=== PATIENT | male | born 1945 | race Caucasian/White ===

== ENCOUNTER 2019-04-21 19:08 | Emergency (ER) | payer MEDICARE, OTHER, SELFPAY ==
[2019-04-21] VITALS (8 sets, daily range): BP systolic 137–154; BP diastolic 67–136; PULSE 82–89; RESP 16–19; TEMP 36.4–36.7; O2SAT 93–98; BMI 33.3
--- NOTE | 2019-04-21 19:11 | CT_ITS ---
We are attempting to reach an attending provider to discuss findings. An addendum with communication details will be sent when the communication is complete. STUDY: CTA HEAD AND NECK WITH CONTRAST REASON FOR EXAM: Male, 73 years old. RADIATION DOSAGE (If Supplied By Facility): CTDIvol = ( 30.30 ) mGy, DLP = ( 1599.81 ) mGycm TECHNIQUE: CT angiography was performed with a multi-detector CT scanner. Data acquisition was obtained from the skull base through the vertex following intravenous administration of 100 IV Isovue 370. MIP images were reconstructed from the axial data set. Post-processing of the angiographic images was performed, with multiplanar reformation and 3D reconstruction. Individualized dose optimization techniques were used for this CT. COMPARISON: No relevant priors. FINDINGS: Intracranial ICA calcifications. Otherwise: Normal bilateral petrous carotid arteries. Normal right cavernous carotid artery with a normal supraclinoid bifurcation. Normal left cavernous carotid artery with a normal supraclinoid bifurcation. Normal right A1 segments of the anterior cerebral artery. Normal left A1 segments of the anterior cerebral artery. Normal intact anterior communicating artery (ACOM). Normal bilateral A2 segments of the anterior cerebral arteries. There is occlusion of the M1 segment of the right MCA. There is some reconstitution of flow of the more distal right MCA segments, although this is globally diminished compared to the left side. The left M1 and M2 segments of the middle cerebral arteries, with a normal M1 bifurcation. Normal right posterior communicating artery (PCOM). Normal left posterior communicating artery (PCOM). Normal bilateral vertebral arteries. Normal basilar artery with a normal basilar bifurcation. The visualized bilateral superior cerebellar (SCA) arteries are normal. Normal bilateral P1, P2 and visualized P3 segments of the posterior cerebral arteries. There is no demonstrated aneurysm of the [place]. There is no demonstrated abnormality of the visualized brain. AORTIC ARCH: Normal visualized aortic arch. Normal origins of the brachiocephalic, left common carotid, and left subclavian arteries. RIGHT CAROTID ARTERIES: Normal right common carotid artery (CCA). Mild eccentric calcified bulb plaque without underlying flow-limiting stenosis. Normal origin of the right internal carotid (ICA) artery without a hemodynamically significant stenosis. Normal visualized cervical portion of the right internal carotid artery. Normal origin of the right external carotid artery (ECA). LEFT CAROTID ARTERIES: Normal left common carotid artery (CCA). Mild eccentric calcified bulb plaque without underlying flow-limiting stenosis. Normal origin of the left internal carotid (ICA) artery without a hemodynamically significant stenosis. Normal visualized cervical portion of the left internal carotid artery. Normal origin of the left external carotid artery (ECA). VERTEBRAL ARTERIES: Normal bilateral vertebral arteries. CT/CTA Head W/WO Contrast IMPRESSION: There is occlusion of the M1 segment of the right MCA. There is some reconstitution of flow of the more distal right MCA segments, although this is globally diminished compared to the left side. Electronically Signed: De Mg MD at 19:39 EDT Tel , Service support ,
--- NOTE | 2019-04-21 19:11 | EKG12_ITS ---
Test Reason : Blood Pressure : / mmHG Vent. Rate : 087 BPM Atrial Rate : 087 BPM P-R Int : 248 ms QRS Dur : 136 ms QT Int : 560 ms P-R-T Axes : 072 114 -12 degrees QTc Int : 673 ms Sinus rhythm with 1st degree A-V block Non-specific intra-ventricular conduction block T wave abnormality, consider inferior ischemia Abnormal ECG Confirmed by FLORINDA ALMAZAN, PAIGE ([id number]), content editor TIARA ODOM ([id number]) on 04/25/2019 1:15:00 PM Referred By: ZAK Confirmed By:PAIGE NEELY MD
--- NOTE | 2019-04-21 19:11 | CT_ITS ---
STUDY: CTA HEAD AND NECK WITH CONTRAST REASON FOR EXAM: Male, 73 years old. RADIATION DOSAGE (If Supplied By Facility): CTDIvol = ( 30.30 ) mGy, DLP = ( 1599.81 ) mGycm TECHNIQUE: CT angiography was performed with a multi-detector CT scanner. Data acquisition was obtained from the skull base through the vertex following intravenous administration of 100 IV Isovue 370. MIP images were reconstructed from the axial data set. Post-processing of the angiographic images was performed, with multiplanar reformation and 3D reconstruction. Individualized dose optimization techniques were used for this CT. COMPARISON: No relevant priors. FINDINGS: Intracranial ICA calcifications. Otherwise: Normal bilateral petrous carotid arteries. Normal right cavernous carotid artery with a normal supraclinoid bifurcation. Normal left cavernous carotid artery with a normal supraclinoid bifurcation. Normal right A1 segments of the anterior cerebral artery. Normal left A1 segments of the anterior cerebral artery. Normal intact anterior communicating artery (ACOM). Normal bilateral A2 segments of the anterior cerebral arteries. There is occlusion of the M1 segment of the right MCA. There is some reconstitution of flow of the more distal right MCA segments, although this is globally diminished compared to the left side. The left M1 and M2 segments of the middle cerebral arteries, with a normal M1 bifurcation. Normal right posterior communicating artery (PCOM). Normal left posterior communicating artery (PCOM). Normal bilateral vertebral arteries. Normal basilar artery with a normal basilar bifurcation. The visualized bilateral superior cerebellar (SCA) arteries are normal. Normal bilateral P1, P2 and visualized P3 segments of the posterior cerebral arteries. There is no demonstrated aneurysm of the [place]. There is no demonstrated abnormality of the visualized brain. AORTIC ARCH: Normal visualized aortic arch. Normal origins of the brachiocephalic, left common carotid, and left subclavian arteries. RIGHT CAROTID ARTERIES: Normal right common carotid artery (CCA). Mild eccentric calcified bulb plaque without underlying flow-limiting stenosis. Normal origin of the right internal carotid (ICA) artery without a hemodynamically significant stenosis. Normal visualized cervical portion of the right internal carotid artery. Normal origin of the right external carotid artery (ECA). LEFT CAROTID ARTERIES: Normal left common carotid artery (CCA). Mild eccentric calcified bulb plaque without underlying flow-limiting stenosis. Normal origin of the left internal carotid (ICA) artery without a hemodynamically significant stenosis. Normal visualized cervical portion of the left internal carotid artery. Normal origin of the left external carotid artery (ECA). VERTEBRAL ARTERIES: Normal bilateral vertebral arteries. CT/CTA Neck W/WO Contrast IMPRESSION: There is occlusion of the M1 segment of the right MCA. There is some reconstitution of flow of the more distal right MCA segments, although this is globally diminished compared to the left side. N.B. : The above information has been verbally conveyed by De Mg MD to Constantine Maria MD, on 04/21/2019 19:40:50 (ET). Electronically Signed: De Mg MD at 19:39 EDT Tel , Service support ,
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
--- NOTE | 2019-04-21 19:11 | RAD_ITS ---
STUDY: X-RAY CHEST REASON FOR EXAM: Male, 73 years old. Stroke TECHNIQUE: Single frontal view of the chest. COMPARISON: None. FINDINGS: The lungs are clear and expanded. There is no demonstrated pleural abnormality. Prominent cardiac silhouette. Normal mediastinum and matt. Normal visualized pulmonary arteries. Normal visualized aortic arch and descending thoracic aorta. Normal visualized thoracic spine. Normal visualized ribs, clavicles, and shoulders. There is no demonstrated abnormality of the visualized soft tissue structures of the upper abdomen. RAD/Chest 1 View IMPRESSION: No acute pulmonary findings. Electronically Signed: De Mg MD at 20:13 EDT Tel , Service support ,
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
[2019-04-21 19:28] LABS: Absolute Lymphocyte Count 1.61 X10^3/ul (0.83-4.51); Absolute Neutrophil Count 7.9 X10^3/uL (2.0-7.7); Basophil# 0.06 X10^3/uL; Basophil% 0.6 % (0-1); Eosinophil# 0.11 X10^3/uL; Hematocrit 49.2 % (40-54); Hemoglobin 16.9 g/dl (13.0-16.5); Lymphocyte # 1.61 X10^3/ul (4.0); Mean Corp Hgb Conc 34.3 g/gl (32-36); Mean Corpuscular Volume 84.4 fL (80-94); Mean Platelet Vol. 11.5 fl (6.2-12.0); Monocyte# 1.01 X10^3/uL; Monocyte% 9.4 % (0-10); Neutrophil # 7.94 X10^3/uL (2.7-7.7); Neutrophil % 73.8 % (47-70); Platelet Count 173 K/mm3 (150-450); RBC Distribution Width CV 16.4 % (11.6-14.6); RBC Distribution Width SD 50.1 fl (35.1-43.9); Red Blood Count 5.83 M/mm3 (4.6-6.2); White Blood Count 10.8 K/mm3 (4.4-11.0)
[2019-04-21] MEDS: Ondansetron 4 MG/2 ML Vial IV (19:32)
[2019-04-21 19:36] LABS: Bedside Glucose 181 mg/dL (70-110)
[2019-04-21 19:47] LABS: Anion Gap 9 (5-15); BUN 15 mg/dL (7-18); BUN/Creat Ratio 13.3 RATIO (10-20); Chloride 100 mmol/L (98-107); Creatinine, Serum 1.13 mg/dL (0.70-1.30); EST Glomerular Filtration Rate 68 mL/min (>60); Est Glom Filt Rate - Afr Amer 82 mL/min (>60); Estimated Creatinine Clearance 54.11 ml/min; Glucose 152 mg/dL (74-106); POSITIVE COUNT NO; POSITIVE DIFFERENTIAL NO; POSITIVE MORPHOLOGY NO; Sodium Level 137 mmol/L (136-145)
[2019-04-21 20:23] LABS: International Normalized Ratio 1.1; Prothrombin Time (Protime)PT. 13.5 SECONDS (11.7-14.9)
[2019-04-21 20:24] LABS: Partial Thromboplast Time 27.3 Seconds (24.1-36.2)
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
--- NOTE | 2019-04-21 20:42 | ED.RN ---
[address] [place] [address] TRANSPORT AT THE BEDSIDE.REPORT GIVEN TO THEM.
== END 2019-04-21 20:45 | disposition short-term general hospital (02) ==
PROVIDERS: Emergency Provider Emergency Medicine
DX: I63.511 Cerebral infarction due to unspecified occlusion or stenosis of right middle cerebral artery (principal); R29.810 Facial weakness; R47.81 Slurred speech; G83.24 Monoplegia of upper limb affecting left nondominant side; G83.14 Monoplegia of lower limb affecting left nondominant side; R47.01 Aphasia; E66.9 Obesity, unspecified
CPT/HCPCS: 51702; 70450; 70496; 70498; 71045; 80048; 82962; 84484; 85025; 85610; 85730; 93005; 96365; 96375; 99285; J2997; J7050; Q9967; A4216; J2405; J3490